=== PATIENT | female | born 1965 | race Caucasian/White ===

== ENCOUNTER 2017-08-19 18:35 | Emergency (ER) | payer BC ==
[~2017-08-19] VITALS: Ht 167.6 cm; Wt 42.6 kg
[2017-08-19] MEDS ORDERED: hydrALAzine 20 MG/ML, 1ML IV ONE ×3 (19:00→19:30)
[2017-08-19 19:26] LABS: HEMATOCRIT 44.6 % (34.6-47.8); HEMOGLOBIN 15.2 g/dL (11.7-16.4); WHITE BLOOD COUNT 4.7 x10^3/uL (3.4-10)
[2017-08-19] MEDS ORDERED: PLEASE ENTER ALLERGIES MC SCH ×2 (19:30)
[2017-08-19 19:33] LABS: BLOOD UREA NITROGEN 10 mg/dL (7-18)
[2017-08-19] MEDS ORDERED: hydrALAzine 20 MG/ML, 1ML ONE (19:38)
[2017-08-19 19:42] LABS: IS PT STATUS REG ER OR PRE ER? YES
[2017-08-19 20:07] VITALS: BP 162/91
== END 2017-08-19 21:46 ==
LOC: ED 19:48
DX: I10 Essential (primary) hypertension (principal); R51 Headache
CPT/HCPCS: 36415; 70450; 71010; 80048; 82040; 84484; 85025; 93005; 96374; 99284; J0360